=== PATIENT | female | born 1975 | race Caucasian/White ===

== ENCOUNTER 2024-11-08 11:10 | Day surgery (SDC) | payer BC ==
[~2024-11-08 11:10] MED LIST: Sodium Chloride 0.9% 10 ML Syringe FLUSH PRN
[2024-11-08] MEDS: Lactated Ringers 1,000 ML IV SCH (11:30)
[2024-11-08] MEDS ORDERED: Midazolam 1 MG/ML 2 ML SDV ONE (12:13)
[2024-11-08] MEDS ORDERED: Propofol 200 MG/20 ML SDV ONE (12:13)
[2024-11-08 14:36] VITALS: BP 110/65; PULSE 65
== END 2024-11-08 13:45 | disposition home or self-care (01) ==
LOC: KA.SDS 11:10
PROVIDERS: ATTEND Family Medicine
DX: Z12.11 Encounter for screening for malignant neoplasm of colon (principal); Z80.0 Family history of malignant neoplasm of digestive organs; K62.89 Other specified diseases of anus and rectum; K64.4 Residual hemorrhoidal skin tags
CPT/HCPCS: 00812; 81025; J2250; J2704; J7120